=== PATIENT | female | born 1995 | race African-American/Black ===

== ENCOUNTER 2018-06-10 21:47 | Emergency (ER) | payer OTHER ==
[~2018-06-10] VITALS: Ht 167.6 cm; Wt 104.3 kg
[2018-06-10 22:10] VITALS: BP 110/72
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
[2018-06-10] MEDS ORDERED: IBUPROFEN600 MG ORAL (22:41)
[2018-06-10] MEDS ORDERED: ROBAXIN500 MG PO (22:41)
[2018-06-10 23:00] VITALS: BP 106/70
--- NOTE | 2018-06-10 23:00 | NUR ---
ED Nurse Note: ED Nurse Note: Pt cleared DC by Dr. Bergman. Pt is A/Ox4, VSS, DC instruction and prescriptions given, pt verbalized understanding. ID wristband removed. All belongings given to pt. Pt ambulated out of ER with steady gait.
== END 2018-06-10 23:00 | disposition home or self-care (01) ==
LOC: EMR 22:41
DX: S29.012A Strain of muscle and tendon of back wall of thorax, initial encounter (principal); V43.52XA Car driver injured in collision with other type car in traffic accident, initial encounter; Y92.410 Unspecified street and highway as the place of occurrence of the external cause
CPT/HCPCS: 99282

== ENCOUNTER 2018-07-10 17:28 | Emergency (ER) | payer OTHER ==
[~2018-07-10] VITALS: Ht 168.9 cm; Wt 103.0 kg
[~2018-07-10 17:28] MED LIST: IBUPROFEN600 MG ORAL; ROBAXIN500 MG PO
[2018-07-10] MEDS ORDERED: NKM (17:41)
--- NOTE | 2018-07-10 17:48 | NUR ---
ED Nurse Note: Pt started to have sorethroat and heartburn this morning, went to [facility], was not precribed any medications. Now complaining of sorethroat 12/09 darshana. AOx4, VSS. Will cont to monitor.
[2018-07-10] MEDS ORDERED: Bicillin LA 2.4MMU/4ML SYR IM ONE (19:00)
[2018-07-10 19:05] VITALS: BP 99/67
--- NOTE | 2018-07-10 19:57 | Emergency Room Report ---
History of Present Illness General Chief Complaint: Upper Respiratory Illness Source: Patient Present Illness HPI This is a 22-year-old female who was seen at a different hospital this morning and was diagnosed with upper respiratory infection and a possible strep throat.. She states that she was not given any antibiotic. She still has pain. And a few 3 this morning. No fever since then. No exacerbating or relieving factor. She denies any shortness of breath. No other associated symptoms. Allergies: Coded Allergies: No Known Allergies (Unverified , 06/10/18) Patient History Past Medical History: none Past Surgical History: none Pertinent Family History: none Now: No Review of Systems All Other Systems: negative except mentioned in HPI Physical Exam Vital Signs Date Time Temp Pulse Resp B/P (MAP) Pulse Ox O2 Delivery O2 Flow Rate FiO2 07/10/18 17:36 99.1 99 20 99/67 97 Room Air General Appearance: well appearing, no apparent distress Head: normocephalic, atraumatic ENT: hearing grossly normal, normal voice, tonsillar exudate Neck: full range of motion, supple Respiratory: no respiratory distress, speaking full sentences Cardiovascular #1: regular rate, rhythm, no edema Gastrointestinal: non tender, soft Musculoskeletal: no calf tenderness Neurologic: alert, normal gait Psychiatric: mood/affect normal Skin: no rash Medical Decision Making Diagnostic Impression: Primary Impression: Pharyngitis ER Course Patient was seen and examined. Patient was given a dose of Bicillin IM. The patient has no evidence of peritonsillar abscess. The patient is able to tolerate a by mouth challenge. She is afebrile and nonseptic appearing. The patient will be discharged home with pain medication and with close follow- up with her primary care physician as an outpatient and saltwater gargling as tolerated. Her lungs are clear. She is not tachypnea, tachycardic, hypoxic. Pneumonia was considered however unlikely. Last Vital Signs Date Time Temp Pulse Resp B/P (MAP) Pulse Ox O2 Delivery O2 Flow Rate FiO2 07/10/18 19:05 99.1 83 20 99/67 97 Room Air Status: improved Disposition: HOME, SELF-CARE Condition: Stable Referrals: NON PHYSICIAN (PCP) Patient Instructions: Pharyngitis ZULMA ONTIVEROS Jul 10, 2018 19:57
[2018-07-10] MEDS ORDERED: IBUPROFEN600 MG ORAL (19:58)
[2018-07-10 20:00] VITALS: BP 99/67
--- NOTE | 2018-07-10 20:00 | NUR ---
ER DISCHARGE NOTE: Patient is cleared to be discharged per ERMD, pt is aox4, on room air, with stable vital signs. pt was given dc and prescription instructions, pt was able to verbalize understanding, pt id band removed. pt is able to ambulate with steady gait. pt took all belongings. Accompanied by family member.
== END 2018-07-10 20:00 | disposition home or self-care (01) ==
LOC: EMR 18:47
DX: J02.9 Acute pharyngitis, unspecified (principal)
CPT/HCPCS: 96372; 99283

== ENCOUNTER 2018-10-11 23:54 | Emergency (ER) | payer OTHER ==
[~2018-10-11] VITALS: Ht 170.2 cm; Wt 105.2 kg
[~2018-10-11 23:54] MED LIST changes: +NKM
--- NOTE | 2018-10-12 00:03 | NUR ---
ED Nurse Note: Pt c/o both legs and R upper arm edema and itchness since yesterday. Skin warm to touch. Pt is AO x 4times, VSS, on room air no distress. ERMD seen Pt at bedside.
[2018-10-12 00:20] VITALS: BP 106/65
[2018-10-12] MEDS ORDERED: DiphenhydrAMINE 25mg/10ml Elixir ORAL ONE (01:00)
[2018-10-12] MEDS ORDERED: CEPHALEXIN500 MG ORAL (01:11)
[2018-10-12] MEDS ORDERED: BENADRYL25 MG ORAL (01:11)
[2018-10-12 01:20] VITALS: BP 106/65
--- NOTE | 2018-10-12 01:20 | NUR ---
ER DISCHARGE NOTE: Patient is cleared to be discharged per Dr. Hennessy. Pt is aox4 on room air with stable vital signs. Pt was given dc and prescription instructions and was able to verbalize understanding. Pt id band removed . Pt is able to ambulate with steady gait and took all belongings.
--- NOTE | 2018-10-12 02:48 | Emergency Room Report ---
History of Present Illness General Chief Complaint: Skin Rash/Abscess Source: Patient Present Illness HPI Patient is a 22-year-old female presented after increased skin rash. Patient had multiple areas of increased itchiness and redness to her extremities. Patient had some discomfort to the areas. She had not been having a fever. She had multiple areas of discomfort. She denies past medical history. Allergies: Coded Allergies: No Known Allergies (Unverified , 06/10/18) Patient History Past Medical History: see triage record Last Menstrual Period: May 2018 (on control) Now: No Reviewed Nursing Documentation: PMH: Agreed; PSxH: Agreed Nursing Documentation-PMH Past Medical History: No Stated History Review of Systems All Other Systems: negative except mentioned in HPI Physical Exam Vital Signs Date Time Temp Pulse Resp B/P (MAP) Pulse Ox O2 Delivery O2 Flow Rate FiO2 10/12/18 00:02 98.2 75 20 102/57 (72) 96 Room Air General Appearance: well appearing, no apparent distress, alert, GCS 15, obese Head: normocephalic, atraumatic ENT: hearing grossly normal, normal voice Neck: full range of motion, supple Respiratory: no respiratory distress, speaking full sentences Cardiovascular #1: normal inspection Gastrointestinal: normal inspection Musculoskeletal: back normal Neurologic: normal inspection, alert, oriented x3 Psychiatric: mood/affect normal Skin: other - Areas of patchy erythema with central papules Medical Decision Making Diagnostic Impression: Primary Impression: Insect bite ER Course Patient is a 22-year-old female presented for skin rash. Differential diagnosis include was not limited to cellulitis, erythema multiforme, chickenpox among others. Patient has a benign exam and does not appear to require any further imaging or laboratory testing at this time. Patient appears to have multiple insect bites which appear to be mosquito bites with surrounding allergy. Patient does not have any definite infection however given the market erythema to some these bites patient will be given prescription for Keflex as well as Benadryl. She was advised to follow-up with her primary care physician for recheck. Last Vital Signs Date Time Temp Pulse Resp B/P (MAP) Pulse Ox O2 Delivery O2 Flow Rate FiO2 10/12/18 00:02 98.2 75 20 102/57 (72) 96 Room Air Status: improved Disposition: HOME, SELF-CARE Condition: Stable Scripts Cephalexin* (KEFLEX*) 500 Mg Capsule 500 MG ORAL EVERY 6 HOURS, #28 CAP Prov: Chiki Hennessy MD 10/12/18 Diphenhydramine Hcl* (BENADRYL*) 25 Mg Capsule 25 MG ORAL Q6H PRN for Itching, #30 CAP Prov: Chiki Hennessy MD 10/12/18 Referrals: [facility],REFERR[facility] (PCP) Patient Instructions: Insect Bite Chiki Hennessy MD Oct 12, 2018 02:48
== END 2018-10-12 01:20 | disposition home or self-care (01) ==
LOC: EMR 10-12 01:15
DX: T14.8XXA Other injury of unspecified body region, initial encounter (principal); W57.XXXA Bitten or stung by nonvenomous insect and other nonvenomous arthropods, initial encounter; Y92.9 Unspecified place or not applicable; R21 Rash and other nonspecific skin eruption
CPT/HCPCS: 99282

== ENCOUNTER 2019-12-09 14:09 | Emergency (ER) | payer OTHER ==
[~2019-12-09] VITALS: Ht 170.2 cm; Wt 108.4 kg
[~2019-12-09 14:09] MED LIST changes: +BENADRYL25 MG ORAL; +CEPHALEXIN500 MG ORAL
[2019-12-09 14:12] VITALS: BP 109/71
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
[2019-12-09] MEDS ORDERED: Methocarbamol 750mg tab ORAL ONE (14:45)
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
[2019-12-09] MEDS ORDERED: IBUPROFEN600 M1 ORAL (15:00)
[2019-12-09] MEDS ORDERED: LIDODERM700 M1 TOPIC (15:00)
[2019-12-09] MEDS ORDERED: ROBAXIN-750750 MG PO (15:00)
[2019-12-09 15:21] VITALS: BP 112/75
--- NOTE | 2019-12-09 15:21 | NUR ---
ER DISCHARGE NOTE: Patient is cleared to be discharged per PA, pt is aox4, on room air, with stable vital signs. pt was given dc and prescription instructions, pt was able to verbalize understanding, pt id band removed. pt is able to ambulate with steady gait. pt took all belongings.
== END 2019-12-09 15:21 | disposition home or self-care (01) ==
LOC: EMR 14:26
DX: S39.012A Strain of muscle, fascia and tendon of lower back, initial encounter (principal); M41.9 Scoliosis, unspecified; V49.9XXA Car occupant (driver) (passenger) injured in unspecified traffic accident, initial encounter; Y92.410 Unspecified street and highway as the place of occurrence of the external cause
CPT/HCPCS: 99282